=== PATIENT | female | born 1950 | race Caucasian/White ===

== ENCOUNTER 2025-07-15 12:24 | Emergency (ER) | payer MEDICARE, SELFPAY ==
--- NOTE | ~2025-07-15 | XR_ITS ---
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 Findings: No acute fracture or malalignment. No significant degenerative changes. Soft tissues unremarkable. Impression: No acute fracture or malalignment. Reviewed, dictated and finalized at location P. HOUSE PRODUCTION WORKER Impression: No acute fracture or malalignment.
--- OUTSIDE RECORDS SUMMARY | 2025-07-15 12:34 | XMS_ITS | Clinical Summary ---
Author Organization [facility] Address [address] [facility] [address] [place] [address] Phone Care Team Providers Care Shearing Shed Worker Name Role Phone Mina Link MD Primary Care Provider [phone] Asiya Priteo MD Unavailable [phone] Viktor Key MD Unavailable [phone] Allergies Active Allergy Reactions Criticality Noted Date Comments Tuberculin Ppd Unknown 10/02/2016 Medications fish oil-omega-3 fatty acids 1000 MG Capsule Take by mouth. Active Calcium Carb-Cholecalci ferol (CALCIUM + D3) 600-200 MG-UNIT Tablet Take 2 Tablets by mouth daily. Active magnesium oxide (MAG-OX) 400 MG Tablet Take 400 mg by mouth daily. Active Cholecalciferol (VITAMIN D PO) Take by mouth. Active meclizine (ANTIVERT) 25 MG Tablet Take 1 Tablet by mouth 3 times daily as needed for Dizziness. 30 Tablet 5 Active ondansetron (ZOFRAN) 4 MG Tablet Take 1-2 Tablets by mouth every 8 hours as needed for Nausea - 1st line. 20 Tablet 5 Active ondansetron (ZOFRAN-ODT) 4 MG TABLET DISPERSIBLE Take 1-2 Tablets by mouth every 8 hours as needed for Nausea - 1st line. 20 Tablet 5 Active alendronate (FOSAMAX) 70 MG Tablet Take 1 Tablet by mouth every 7 days. 12 Tablet 3 5 Active triamcinolone acetonide (Nasacort Allergy 24HR) 55 MCG/ACT AerosolIndicati ons:Chronic maxillary sinusitis 2 Sprays by Nasal route daily. 17 mL 5 5 Active metoprolol Succinate (TOPROL-XL) 25 MG TABLET SR 24 HR Take 1 tablet by mouth once daily 90 Tablet 1 5 Active amLODIPine (NORVASC) 5 MG Tablet Take 1 tablet by mouth once daily 90 Tablet 1 5 Active losartan (COZAAR) 100 MG Tablet Take 1 tablet by mouth once daily 90 Tablet 1 5 Active simvastatin (ZOCOR) 20 MG Tablet Take 1 tablet by mouth nightly 90 Tablet 5 Active simvastatin (ZOCOR) 20 MG Tablet Take 1 tablet by mouth nightly 90 Tablet 1 5 025 Discontinued Active Problems Problem Noted Date Diagnosed Date Subacute maxillary sinusitis 10/07/2024 Nausea 10/07/2024 Rupture of right Achilles tendon 05/26/2024 B12 deficiency 10/19/2023 Hematuria 10/19/2023 Dizziness 05/27/2023 Sinus congestion 05/27/2023 Foul smelling urine 05/27/2023 Abnormal mammogram 10/09/2022 Left sided sciatica 10/09/2022 Abnormal cardiovascular stress test 07/03/2022 Osteopenia 06/02/2022 Postmenopausal 03/19/2022 Right elbow pain 03/19/2022 Chronic joint pain 09/19/2021 HTN (hypertension) 11/10/2020 Skin lesion of back 08/04/2020 COVID-19 08/04/2020 Left hip pain 08/04/2020 Overweight (BMI 25.0-29.9) 06/02/2019 Leukopenia 09/13/2018 Hyperglycemia 09/13/2018 Abnormal mammogram of right breast 08/06/2018 Obesity (BMI 30-39.9) 07/09/2017 Metatarsalgia, right foot 02/27/2017 Instability of metatarsophalangeal joint of righ t foot 02/27/2017 Equinus contracture of right ankle 02/27/2017 Instability of ankle 01/01/2017 Acute right ankle pain 01/01/2017 Sprain of right ankle 01/01/2017 Vitamin D insufficiency 11/12/2016 Hyperlipidemia 10/02/2016 Hypomagnesemia 10/02/2016 Insomnia 10/02/2016 History of colon polyps 10/02/2016 Bilateral impacted cerumen 10/02/2016 Encounters Date Type Department Care Team Description 07/15/2025 Refill [facility] [address] [facility] [place] [address] Mina Link MD Medication Refill 06/07/2025 9:30 AM MERCHANT PATROLLER Office Visit [facility] [address] [place] [address] Zach Fields APRN, CNP Primary hypertension (Primary Dx); Hyperlipidemia, unspecified hyperlipidemia type Discharge Disposition: Discharged to home or Selfcare 06/07/2025 Results Follow-Up [facility] [address] [facility] [address] Zach Fields APRN, CNP CMP (COMPREHENSIVE METABOLIC PANEL), HEMOGLOBIN A1C W/ ESTIMATED GLUCOSE, LIPID PANEL, CBC WITH AUTO DIFFERENTIAL 06/05/2025 Travel 06/05/2025 Refill [facility] [address] [place] [address] Mina Link MD Medication Refill from Last 3 Months Immunizations Immunization Administration Dates Next Due Covid-19, Mrna, Lnp-s, Pf, 3 0 Mcg/0.3 Ml Dose ([employer]) 10/15/2020,09/22/2020 Influenza Vaccine greater than 3 yrs 04/23/2017 Influenza Vaccine, Quadrivalent, PF 05/17/2020,1 08/02/2018,08/25/2018 Influenza, High-dose, Quadrivalent 04/28,04/04/2022,05/29/2021,05/29 Influenza, high-dose, trivalent, PF 05/04/2024,0 04/25/2020 MMR Vaccine 12/10/2005 Pneumococcal Vaccine - 13 Valent 08/04/2020 Pneumococcal conjugate PCV20 , polysaccharide [id number] conjugate, adjuvant, PF 04/04/2022 Family History Medical History Relation Name Comments Congestive Heart Failure Father Sabas Breast Cancer Mother Zeny Cancer Mother Zeny Heart Attack Mother Zeny Heart Disease Mother Zeny Hypertension Mother Zeny Sudden Cardiac Mother Zeny Relation Name Status Comments Father Sabas Mother Zeny Social History Tobacco Use Types Packs/Day Years Used Date Smoking Tobacco: Never Smokeless Tobacco: Never Tobacco Cessation:Counseling Given: Not Answered Alcohol Use Standard Drinks/Week Comments No 0 (1 standard drink = 0.6 oz pur e alcohol) [facility] Utilities Answer Date Recorded In the past 12 months has th e electric, gas, oil, or water company threatened to shut off services in your home? No 11/28/2024 Social Connection and Isolation Panel Answer Date Recorded In a typical week, how many times do you talk on the phone with family, friends, or neighbors? More than three times a week 11/28/2024 How often do you get togethe r with friends or relatives? Twice a week 11/28/2024 How often do you attend [facility] ch or yarsanism services? Never 11/28/2024 Do you belong to any clubs o r organizations such as spiritism groups, unions, fraternal or athletic groups, or school groups? No 11/28/2024 How often do you attend meet ings of the clubs or organizations you belong to? Patient declined 11/28/2024 Are you , , di vorced, , never , or living with a partner? 11/28/2024 AUDIT-C Answer Date Recorded Q1: How often do you have a drink containing alcohol? Never 11/28/2024 Q2: How many drinks containi ng alcohol do you have on a typical day when you are drinking? Patient does not drink Q3: How often do you have si x or more drinks on one occasion? Never 11/28/2024 Overall Financial Resource Strain (CARDIA) Answe r Date Recorded How hard is it for you to pa y for the very basics like food, housing, medical care, and heating? Not hard at all 11/28/2024 PHQ-2 Answer Date Recorded Total Score - Questions 1-9 0 12/2024 [facility] - Occupational Stress Questionnaire Answer Date Recorded Do you feel stress - tense, restless, nervous, or anxious, or unable to sleep at night because your mind is troubled all the time - these days? Not at all 11/28/2024 Exercise Vital Sign Answer Date Recorde d On average, how many days pe r week do you engage in moderate to strenuous exercise (like a brisk walk)? 2 days 11/28/2024 On average, how many minutes do you engage in exercise at this level? 20 min 11/28/2024 Hunger Vital Sign Answer Date Recorded Within the past 12 months, y ou worried that your food would run out before you got the money to buy more. Never true 11/29/19 25 Within the past 12 months, t he food you bought just didn't last and you didn't have money to get more. Never true 11/28/2024 PRAPARE - Transportation Answer Date Re corded In the past 12 months, has l ack of transportation kept you from medical appointments or from getting medications? No 10/2024 In the past 12 months, has l ack of transportation kept you from meetings, work, or from getting things needed for daily living? No 11/28/2024 Housing Stability Vital Sign Answer Kevon e Recorded In the last 12 months, was t here a time when you were not able to pay the mortgage or rent on time? No 08/30/2023 In the last 12 months, how many places have you lived? 1 08/30/2023 In the last 12 months, was t here a time when you did not have a steady place to sleep or slept in a fpc (including now)? No 08/30/2023 Housing Stability Vital Sign Answer Kevon e Recorded In the last 12 months, was t here a time when you were not able to pay the mortgage or rent on time? No 11/28/2024 In the past 12 months, how m any times have you moved where you were living? 0 11/28/2024 At any time in the past 12 m [facility], were you homeless or living in a fpc (including now)? No 11/28/2024 Education Answer Date Recorded What is the highest level of school you have completed or the highest degree you have received? Some college, no degree 09/17/2021 Sexually Active Control Partners Comments Yes Surgical Male Comments No Sex and Gender Information Value Date Recorded Sex Assigned at Female 08/22/2024 8:45 PM MERCHANT PATROLLER Legal Sex Female 7:51 PM CDT Gender Identity Female 08/22/2024 8:45 PM MERCHANT PATROLLER Sexual Orientation Not on file Last Filed Vital Signs Vital Sign Reading Time Taken Comments Blood Pressure 110/78 06/07/2025 8:52 AM MERCHANT PATROLLER Pulse 81 06/07/2025 8:52 AM MERCHANT PATROLLER Temperature 35.5 C (95.9 F) 06/07/2025 8:52 AM MERCHANT PATROLLER Respiratory Rate 12 06/07/2025 8:52 AM MERCHANT PATROLLER Oxygen Saturation 97% 06/07/2025 8:52 AM MERCHANT PATROLLER Inhaled Oxygen Concentration - - Weight 92.3 kg (203 lb 8 oz) 06/07/2025 8:52 AM MERCHANT PATROLLER Height 170.2 cm (5' 7) 06/07/2025 8:52 AM MERCHANT PATROLLER Body Mass Index 31.87 06/07/2025 8:52 AM MERCHANT PATROLLER Plan of Treatment Upcoming Encounters Date Type Department Care Team (Late st Contact Info) Description 08/18/2025 3:00 PM MERCHANT PATROLLER Office Visit [facility] - Cardiology - [place] [address] [place] [phone] Aide Sarmiento MULTIMEDIA DESIGNER, SUPERVISOR PAINTING DEPARTMENT 2 [facility] [address] [place] [address] 12/06/2025 9:00 AM CDT Office Visit [facility] - Family Medicine - [place] [address] [place] [phone] Zach Fields, MULTIMEDIA DESIGNER, SUPERVISOR PAINTING DEPARTMENT [address]2 [facility] [address] [place] [address] 02/16/2026 10:00 AM CDT Office Visit [facility] - Ear, Nose & Throat - [place] [address] [place] [address] Viktor Key MD #2 [facility] [address] [place] [address] 02/17/2026 9:00 AM CDT Office Visit [facility] [address] [place] [address] Asiya Prieto MD [address] [facility] [address] [place] [address] Health Maintenance Due Date Last Done Comments TdaP Immunization 1950 Cologuard 02/09/1997 Immunochemical Fecal Occult Blood 02/09/1997 Zoster Immunization (1 of 2) 02/09/2002 Medicare Initial AWV [id number] 01/25/2018 Mammogram 10/25/2025 10/25/2024, 09/26, 09/20/2022, Additional history exists SARS-COV-2 Immunization ( season) 2025 04/28/2025, 05/04/2024, 05/26/2022, Additional history exists DEXA Bone Density 09/30/2026 09/30/2024, 03/26/2022 Colonoscopy 12/05/2026 12/05/2021, 05/28, 06/06/2014 Colorectal Cancer Screening 12/05/2026 Respiratory Syncytial Virus (RSV) Immunization (Adult) (1 - 1-dose 75+ series) 02/09/2027 Hepatitis C Virus (HCV) Screening Completed 08/27/2018 Pneumococcal Immunization (50+ years) Completed 04/04/2022, 08/04/2020 Pneumococcal Immunization Combined Discontinued 04/04/2022, 08/04/2020 Influenza Immunization Completed , 05/04/2024, 04/28/2023, Additional history exists Hepatitis B Immunization Aged Out No longer eligible based on patient's age to complete this topic Human Papillomavirus (HPV) Immunization (No Doses Required) Completed Meningococcal Immunization (ACWY) Aged Out No longer eligible based on patient's age to complete this topic Rotavirus Immunization Aged Out No lo nger eligible based on patient's age to complete this topic Medical Devices Implanted Type Area Help Desk Associate Device Identifier Shelf Expiration Date Model / Serial / Lot Shawn 3.5mm X 15.5mm Citrefix Xpress System Implanted:Qty: 1 on 05/26/2024 by Enzo Norton, DPM at [facility] IMPLANT Right: Heel SHAWN 01/21/2027-810-351 5 / [id number] Description:IMPLANTED INTO T PROXIMAL HEEL EO LOT: [id number] Hsawn 3.5mm X 15.5mm Citrefix Xpress System Implanted:Qty: 1 on 05/26/2024 by Enzo Norton, DPM at [facility] IMPLANT Right: Heel SHAWN 12/17/2026-810- 5 / [id number] Description:IMPLANTED INTO T PROXIMAL HEEL EO LOT: [id number] Tissue Surgical Stravix Pl 3cm X 6 Cm - [id number] Implanted:Qty: 1 on 05/26/2024 by Enzo Norton, DPM at [facility] IMPLANT Right: Heel [employer] 10/12/2025 [id number] / [id number] / [id number] [place] 4.75mm Peek Knotless New Market System Implanted:Qty: 2 on 05/26/2024 by Enzo Norton, DPM at [facility] Right: Heel SHAWN 08/20/2025 [id number] / [id number] Description:IMPLANTED INTO T DISTAL HEEL Procedures Procedure Name Priority Date/Time Associated Diagnosis Comments CBC WITH AUTO DIFFERENTIAL Routine 06/07/2025 8:48 AM MERCHANT PATROLLER Primary hypertension LIPID PANEL Routine 06/07/2025 8:48 AM MERCHANT PATROLLER Hyperlipidemia, unspecified hyperlipidemia type HEMOGLOBIN A1C W/ ESTIMATED GLUCOSE Routine 06/07/2025 8:48 AM MERCHANT PATROLLER Prediabetes COMPLETE BLOOD COUNT (CBC) WITH DIFF Routine 06/07/2025 8:48 AM MERCHANT PATROLLER Primary hypertension CMP (COMPREHENSIVE METABOLIC PANEL) Routine 06/07/2025 8:48 AM MERCHANT PATROLLER Primary hypertension [facility] DIAG BILATERAL DIGITAL W CAD W CAMRYN Routine 10/25/2024 9:39 AM CDT Abnormal mammogram [facility] BONE DENSITOMETRY AXIAL SKELETON Routine 09/30/2024 9:20 AM MERCHANT PATROLLER Postmenopausal HM COLONOSCOPY 12/05/2021 12:00 AM CDT HEPATITIS C ANTIBODY Routine 08/27/2018 8:00 AM MERCHANT PATROLLER Encounter for hepatitis C screening test for low risk patient from Last 3 Months or Most Recently Relevant to Health Maintenance Results * HEMOGLOBIN A1C W/ ESTIMATED GLUCOSE (06/07/2025 8:48 AM MERCHANT PATROLLER) HGB-A1C 5.6 4.0 - 6.0 % 06/07/2025 9:35 AM MERCHANT PATROLLER [facility] Est Average Glucose 114.0 mg/dL 06/07/2025 9:35 AM MERCHANT PATROLLER [facility] Blood Venipuncture / Unknown 06/07/2025 8:48 AM MERCHANT PATROLLER 06/07/2025 8:59 AM MERCHANT PATROLLER Narrative [facility] - 06/07/2025 9:35 AM MERCHANT PATROLLER HEMOGLOBIN A1C: DIABETIC PATIENTS: WELL-CONTROLLED: 6.2 - 7.0 INTERMEDIATE WELL-CONTROLLED: 7.0 - 9.0 POORLY-CONTROLLED: >9.0 Specimens containing greater than 5% of Hemoglobin F may result in lower than expected % HbA1C results. us Zach Fields APRN, SUPERVISOR PAINTING DEPARTMENT CHEMISTRY ORDERA BLES Final Result [facility] [address] [place] [address] * (ABNORMAL) CBC WITH AUTO DIFFERENTIAL (06/07/2025 8:48 AM [facility] [[email or web address] WBC 4.39 4.00 - 12.00 10(3)/mcL 06/07/2025 9:01 AM [facility] RBC 4.97 3.80 - 5.30 10(6)/mcL 06/07/2025 9:01 AM [facility] HEMOGLOBIN (HGB) 14.0 12.0 - 15.8 g/dL 06/07/2025 9:01 AM [facility] HEMATOCRIT (HCT) 43.2 36.0 - 47.0 % 06/07/2025 9:01 AM [facility] MCV 86.9 82.0 - 96.0 fL 06/07/2025 9:01 AM [facility] MCH 28.2 26.0 - 34.0 pg 06/07/2025 9:01 AM [facility] MCHC 32.4 31.0 - 36.0 g/dL 06/07/2025 9:01 AM [facility] PLATELET COUNT 230 140 - 440 10(3)/[facility] 06/07/2025 9:01 AM [facility] RDW 13.5 11.8 - 15.5 % 06/07/2025 9:01 AM [facility] MPV 9.3(L) 9.7 - 12.4 fL 06/07/2025 9:01 AM [facility] NEUTROPHILS 57.8 47.0 - 73.0 % 06/07/2025 9:01 AM [facility] LYMPHOCYTES 32.6 18.0 - 42.0 % 06/07/2025 9:01 AM [facility] MONOCYTES 7.3 4.0 - 12.0 % 06/07/2025 9:01 AM [facility] EOSINOPHILS 0.9 0.0 - 5.0 % 06/07/2025 9:01 AM [facility] BASOPHILS 0.9 0.0 - 1.0 % 06/07/2025 9:01 AM MERCHANT PATROLLER [facility] IMMATURE GRANULOCYTE 0.5(H) 0.0 - 0.4 % 06/07/2025 9:01 AM MERCHANT PATROLLER [facility] Comment:Immature Granulocyte s includes Metamyelocytes, Myelocytes, and Promyelocytes. ABSOLUTE NEUTROPHILS 2.54 1.60 - 7.70 10(3)/[facility] 06/07/2025 9:01 AM MERCHANT PATROLLER [facility] ABSOLUTE LYMPHOCYTES 1.43 1.30 - 3.20 10(3)/[facility] 06/07/2025 9:01 AM MERCHANT PATROLLER [facility] ABSOLUTE MONOCYTES 0.32 0.20 - 1.00 10(3)/[facility] 06/07/2025 9:01 AM [facility] ABSOLUTE EOSINOPHIL 0.04 0.00 - 0.40 10(3)/[facility] 06/07/2025 9:01 AM [facility] ABSOLUTE BASOPHILS 0.04 0.00 - 0.10 10(3)/[facility] 06/07/2025 9:01 AM [facility] ABSOLUTE IMMATURE GRANULOCYTE 0.02 0.00 - 0.03 10 (3) mcL. 06/07/2025 9:01 AM [facility] NRBC PER 100 WBC 0 06/07/20 25 9:01 AM [facility] Blood Venipuncture / Unknown 06/07/2025 8:48 AM MERCHANT PATROLLER 06/07/2025 8:59 AM MERCHANT PATROLLER us Zach Fields MULTIMEDIA DESIGNER, SUPERVISOR PAINTING DEPARTMENT HEMATOLOGY ORDER DELIA Final Result [facility] [address] [place] [address] * LIPID PANEL (06/07/2025 8:48 AM MERCHANT PATROLLER) CHOLESTEROL 164 <200 mg/dL 06/07/2025 9:56 AM MERCHANT PATROLLER [facility] TRIGLYCERIDES 89 <150 mg/dL 06/07/2025 9:56 AM MERCHANT PATROLLER [facility] HDL CHOLESTEROL 56 >40 mg/dL 9:56 AM [facility] LDL 90 <130 mg/dL 06/07/2025 9:56 AM [facility] VLDL 18 10 - 50 mg/dL 06/07/2025 9:56 AM [facility] CHOL/HDL RATIO 2.9 0.0 - 4.4 06/07/2025 9:56 AM [facility] NON-HDL CHOLESTEROL 108 <130 mg/dL 06/07/2025 9:56 AM [facility] IS THE PATIENT REQUIRED TO BE FASTING? No 06/07/2025 9:56 AM [facility] Blood Venipuncture / Unknown 06/07/2025 8:48 AM MERCHANT PATROLLER 06/07/2025 8:59 AM MERCHANT PATROLLER Narrative [facility] - 06/07/2025 9:56 AM [facility] [[email or web address]] NCEP GUIDELINES FOR LIPID INTERPRETATION TOTAL CHOLESTEROL DESIRABLE <200 BORDERLINE 200-239 HIGH >=240 LDL CHOLESTEROL OPTIMAL <100 NEAR OPTIMAL 100-129 BORDERLINE 130-159 HIGH 160-189 VERY HIGH >=190 Calculated using the Friedewald equation. HDL CHOLESTEROL LOW <40 *HIGH >=60 TRIGLYCERIDES NORMAL <150 BORDERLINE 150-199 HIGH 200-499 VERY HIGH >=500 VLDL calculated using Triglycerides/5. *HDL CHOLESTEROL >=60 mg/dL counts as a negative risk factor; its presence removes one risk factor from the total. Based on guidelines from the National Cholesterol Education Program, desirable levels for non HDL cholesterol are 30 mg/dL above target levels for LDL cholesterol. us Zach Fields MULTIMEDIA DESIGNER, SUPERVISOR PAINTING DEPARTMENT CHEMISTRY ORDERA BLES Final Result [facility] [address] [place] [address] * (ABNORMAL) CMP (COMPREHENSIVE METABOLIC PANEL) (06/07/2025 8:48 AM MERCHANT PATROLLER) SODIUM 140 136 - 145 mmol/L 06/07/2025 9:56 AM [facility] POTASSIUM 4.7 3.5 - 5.1 mmol/L 06/07/2025 9:56 AM [facility] CHLORIDE 104 98 - 107 mmol/L 06/07/2025 9:56 AM [facility] CO2, VENOUS 27 22 - 30 mmol/L 06/07/2025 9:56 AM [facility] ANION GAP 13.7 <18.0 mmol/L 06/07/2025 9:56 AM [facility] GLUCOSE 102(H) 70 - 99 mg/dL 06/07/2025 9:56 AM [facility] BUN 18 10 - 20 mg/dL 06/07/2025 9:56 AM [facility] CREATININE, BLOOD 1.03(H) 0.60 - 1.00 mg/dL 06/07/2025 9:56 AM [facility] BUN/CREATININE RATIO 17 12 - 20 ratio 06/07/2025 9:56 AM [facility] TOTAL PROTEIN 6.9 6.0 - 8.0 g/dL 06/07/2025 9:56 AM [facility] ALBUMIN 4.5 3.5 - 5.0 g/dL 06/07/2025 9:56 AM [facility] A/G RATIO 1.9 1.0 - 2.2 06/07/2025 9:56 AM [facility] CALCIUM 10.3 8.7 - 10.5 mg/dL 06/07/2025 9:56 AM [facility] T BILI 0.7 0.2 - 1.2 mg/dL 06/07/2025 9:56 AM [facility] SGOT (AST) 22 <43 U/L 06/07/2025 9:56 AM [facility] SGPT (ALT) 21 <56 U/L 06/07/2025 9:56 AM [facility] ALKALINE PHOSPHATASE 60 40 - 150 U/L 06/07/2025 9:56 AM MERCHANT PATROLLER [facility] IS THE PATIENT REQUIRED TO BE FASTING? No 06/07/2025 9:56 AM MERCHANT PATROLLER [facility] GFR, ESTIMATED 57(L) >=60 06/07/2025 9:56 AM MERCHANT PATROLLER [facility] Comment: Creatinine Clearance is the preferred criteria for selecting drug dose adjustments in renally impaired patients. The GFR is provided as additional pertinent clinical information. GFR is reported in mL/min/1.73 sq m. Calculation based on the 2020 Chronic Kidney Disease Epidemiology Collaboration (CKD-EPI) equation refit without adjustment for race. GFR, EST. >60 >=60 9:56 AM MERCHANT PATROLLER [facility] Comment: Creatinine Clearance is the preferred criteria for selecting drug dose adjustments in renally impaired patients. The GFR is provided as additional pertinent clinical information. GFR is reported in mL/min/1.73 sq m. Calculation based on the 2009 Chronic Kidney Disease Epidemiology Collaboration (CKD-EPI). GFR, EST. NONAFRICAN 53(L) >=60 06/07/2025 9:56 AM MERCHANT PATROLLER [facility] Comment: Creatinine Clearance is the preferred criteria for selecting drug dose adjustments in renally impaired patients. The GFR is provided as additional pertinent clinical information. GFR is reported in mL/min/1.73 sq m. Calculation based on the 2009 Chronic Kidney Disease Epidemiology Collaboration (CKD-EPI). Blood Venipuncture / Unknown 06/07/2025 8:48 AM MERCHANT PATROLLER 06/07/2025 8:59 AM MERCHANT PATROLLER us Zach Fields MULTIMEDIA DESIGNER, SUPERVISOR PAINTING DEPARTMENT CHEMISTRY ORDERA BLES Final Result [facility] [address] [place] [address] * ROBINSON DIAG BILATERAL DIGITAL W CAD W CAMRYN (10/25/2024 9:39 AM CDT) Anatomical Region Laterality Modality breast Bilateral Mammography 10/25/2024 9:27 AM CDT Narrative 10/25/2024 10:38 AM CDT - ROBINSON DIAG BILATERAL DIGITAL W CAD W CAMYRN BILATERAL DIGITAL DIAGNOSTIC MAMMOGRAM 3D/2D WITH CAD WITH MEDIOLATERAL OBLIQUE CRANIOCAUDAL: 10/25/2024 The study was acquired using digital technology and interpreted from soft copy. Current study was also evaluated with ICAD version 7.2. 2D digital mammographic views, as well as 3D digital tomosynthesis were performed in the CC and MLO projections. CLINICAL: Patient returns for a 2 year follow-up left breast. Patient has no complaints. No personal history of cancer. Mother with postmenopausal breast cancer. COMPARISONS: Comparison is made to exams dated: 10/24/2023, 04/08/2023, 10/22/2022, 09/20/2022, 08/25/2021, and 08/22/2020 [facility]. BREAST TISSUE:There are scattered areas of fibroglandular density. FINDINGS: Left breast focal asymmetry is less impressive or unchanged and is benign. No significant masses, calcifications, or other findings are seen in either breast. There has been no significant interval change. IMPRESSION: BENIGN There is no mammographic evidence of malignancy. A 1 year screening mammogram is recommended. The results and recommendations were discussed with the patient. Electronically signed by: Angelita barbosa/gaye:10/25/2024 09:39:08 Chromosomal Disorders Counselor(s): RT Fe(R)(M), [facility] letter sent: Normal Exam Reading location: [place] Mammogram BI-RADS: Category 2: Benign Procedure Note Angelita Gale MD - 10/25/2024 - [facility] DIAG BILATERAL DIGITAL W CAD W CAMRYN BILATERAL DIGITAL DIAGNOSTIC MAMMOGRAM 3D/2D WITH CAD WITH MEDIOLATERAL OBLIQUE CRANIOCAUDAL: 10/25/2024 The study was acquired using digital technology and interpreted from soft copy. Current study was also evaluated with ICAD version 7.2. 2D digital mammographic views, as well as 3D digital tomosynthesis were performed in the CC and MLO projections. CLINICAL: Patient returns for a 2 year follow-up left breast. Patient has no complaints. No personal history of cancer. Mother with postmenopausal breast cancer. COMPARISONS: Comparison is made to exams dated: 10/24/2023, 04/08/2023, 10/22/2022, 09/20/2022, 08/25/2021, and 08/22/2020 [facility]. BREAST TISSUE:There are scattered areas of fibroglandular density. FINDINGS: Left breast focal asymmetry is less impressive or unchanged and is benign. No significant masses, calcifications, or other findings are seen in either breast. There has been no significant interval change. IMPRESSION: BENIGN There is no mammographic evidence of malignancy. A 1 year screening mammogram is recommended. The results and recommendations were discussed with the patient. Electronically signed by: Angelita Gale M.D. ab/penrad:10/25/2024 09:39:08 Chromosomal Disorders Counselor(s): RT Fe(R)(M), [facility] letter sent: Normal Exam Reading location: [facility] Mammogram BI-RADS: Category 2: Benign [facility] Clark Link MD IMG MAMMO ORDERABLES Phylicia l Result * [facility]SON BONE DENSITOMETRY AXIAL SKELETON (09/30/2024 9:20 AM MERCHANT PATROLLER) Anatomical Region Laterality Modality BODY N/A Computed Radiogr aphy 09/30/2024 3:44 PM MERCHANT PATROLLER Impressions 09/30/2024 3:46 PM MERCHANT PATROLLER IMPRESSION: Low Bone Mass. REFERENCE: Bone mineral density: T-Score: Normal (T-score above or = -1.0) Low bone mass (T-score between -1.0 and -2.5) replaces the previously used term osteopenia Osteoporosis (T-score = or below -2.5) Z-Score: Within the expected range for age (Z-score above -2.0) Below the expected range for age (Z-score is -2.0 or below) Please see below follow up recommendations. Medical evaluation for secondary causes of low bone mineral density may be appropriate. FRAX is a World Health Organization validated fracture risk assessment tool that calculates a person's 10 year probability of a major osteoporosis related fracture and hip fracture. According to the National Osteoporosis Foundation guidelines, postmenopausal women and men age 50 or older with low bone mass and a 10 year probability of a major osteoporosis related fracture = or greater than 20% or a 10 year probability of a hip fracture = or greater than 3% should be considered for pharmacological treatment for the prevention of osteoporosis. 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 CLINICAL INFORMATION: Current height: 67 inches Maximum height: 67 inches Weight: 200 pounds Risk factors: Postmenopausal, adult fracture COMPARISON: 03/26/2022 FINDINGS: AP LUMBAR SPINE L1-L4: Total BMD is 1.301 g/cm2 T-score is 0.9 This is increased in comparison to prior exam which is statistically significant. LEFT HIP: Total BMD is 0.944 g/cm2 T-score is -0.5 This is increased in comparison to prior exam which is statistically significant. Femoral neck BMD is 0.824 g/cm2 T-score is -1.5 FRAX: 10 year risk for a major osteoporotic fracture is 15.8 %, 10 year risk for a hip fracture is 2.5 % THIS IS AN ELECTRONICALLY VERIFIED FINAL REPORT 09/30/2024 3:44 PM - Electronically signed by Enzo Ashton M.D. 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 CLINICAL INFORMATION: Current height: 67 inches Maximum height: 67 inches Weight: 200 pounds Risk factors: Postmenopausal, adult fracture COMPARISON: 03/26/2022 FINDINGS: AP LUMBAR SPINE L1-L4: Total BMD is 1.301 g/cm2 T-score is 0.9 This is increased in comparison to prior exam which is statistically significant. LEFT HIP: Total BMD is 0.944 g/cm2 T-score is -0.5 This is increased in comparison to prior exam which is statistically significant. Femoral neck BMD is 0.824 g/cm2 T-score is -1.5 FRAX: 10 year risk for a major osteoporotic fracture is 15.8 %, 10 year risk for a hip fracture is 2.5 % THIS IS AN ELECTRONICALLY VERIFIED FINAL REPORT 09/30/2024 3:44 PM - Electronically signed by Enzo Ashton M.D. MF: KEITH Report ID: [id number] Reading Location: [place] [address] IMPRESSION: Low Bone Mass. REFERENCE: Bone mineral density: T-Score: Normal (T-score above or = -1.0) Low bone mass (T-score between -1.0 and -2.5) replaces the previously used term osteopenia Osteoporosis (T-score = or below -2.5) Z-Score: Within the expected range for age (Z-score above -2.0) Below the expected range for age (Z-score is -2.0 or below) Please see below follow up recommendations. Medical evaluation for secondary causes of low bone mineral density may be appropriate. FRAX is a World Health Organization validated fracture risk assessment tool that calculates a person's 10 year probability of a major osteoporosis related fracture and hip fracture. According to the National Osteoporosis Foundation guidelines, postmenopausal women and men age 50 or older with low bone mass and a 10 year probability of a major osteoporosis related fracture = or greater than 20% or a 10 year probability of a hip fracture = or greater than 3% should be considered for pharmacological treatment for the prevention of osteoporosis. For further information, including treatment recommendations, please refer to the 2019 ISCD Official Positions (http://www.iscd.org) and the NOF's Clinician's Guide to Prevention and Treatment of Osteoporosis (http://www.nof.org/professionals/clinical-guidelines) us Mina Link MD IMG DEXA ORDERABLES Final Result * COLONOSCOPY (12/05/2021 12:00 AM CDT) 12/05/2021 us Not On File Provider PROCEDURE/MINOR SURGICAL OR DERABLES Final Result Performing Organization Address City/[facility] Co de Phone Number SCAN * HEPATITIS C ANTIBODY (08/27/2018 8:00 AM MERCHANT PATROLLER) hepatitis C antibody 0.15 <1 S/CO 08/27/2018 2:25 PM MERCHANT PATROLLER [facility] Comment: Signal/Cutoff ratio < 0.79 is Nondetected Signal/Cutoff ratio 0.80-0.99 is Grayzone Signal/Cutoff ratio > 0.99 is Detected Supplemental assays are recommended if signal/cutoff ratio is >/=1.00. Signal/cutoff ratio result >/= 5.00 is 97% predictive of positivity for recombinant immunoblot assay (RIBA) and will be reported to the [place] Department of Public Health as required. Blood specimen (specimen) Venipuncture / Unknown 08/27/2018 8:00 AM MERCHANT PATROLLER 08/27/2018 8:50 AM MERCHANT PATROLLER us Mina Link MD CHEMISTRY ORDERABLES Phylicia l Result Performing Organization Address [facility] Co de Phone Number [facility] [address] [place] [address], from Last 3 Months or Most Recently Relevant to Health Maintenance Insurance MEDICARE [facility] [facility] SUPPLEMENTAL GENERIC GENERIC [facility] GENER[facility] Care Teams Shearing Shed Worker Relationship Specialty Start Date End Date Mina Link MD [address] [facility] [address] [place] [address] PCP - General Family Medicine 10/02/16 Asiya Prieto MD [address] [facility] [address] [place] [address] Consulting Physician Urology 12/05/23 Viktor Key MD [address] [facility] [address] [place] [address] Consulting Physician Otolaryngology 12/13/24
--- OUTSIDE RECORDS SUMMARY | 2025-07-15 12:34 | XMS_ITS | Encounter Summary ---
Author Organization [facility] Address [address] [place] [address] Phone Care Team Providers Care Processing Specialist Name Role Phone Mina Link MD Primary Care Provider [phone] Ahmet Ortega DPM Unavailable [phone] Mitch Ramires MD Unavailable Rylie Issa APRN, REFINERY OPERATOR HELPER CRACKING UNIT Unavailable + [phone] Asiya Prieto MD Unavailable [phone] Viktor Key MD Unavailable [phone] Reason for Visit * Reason Comments Medication Refill Encounter Details Date Type Department Care Team (Late st Contact Info) Description 11/11/2023 Refill [facility] - Family Medicine - [address] [place] [address] Mina Link MD [address] [address] Medication Refill Social History Tobacco Use Types Packs/Day Years Used Date Smoking Tobacco: Never Smokeless Tobacco: Never Alcohol Use Standard Drinks/Week Comments No 0 (1 standard drink = 0.6 oz pur e alcohol) [facility] Utilities Answer Date Recorded In the past 12 months has e electric, gas, oil, or water company threatened to shut off services in your home? No 08/30/2023 Social Connection and Isolation Panel Answer Date Recorded In a typical week, how many times do you talk on the phone with family, friends, or neighbors? More than three times a week 08/30/2023 How often do you get togethe r with friends or relatives? Three times a week 08/30/2023 How often do you attend chur or mu-ism services? Patient declined 08/30/2023 Do you belong to any clubs o r organizations such as anglican groups, unions, fraternal or athletic groups, or school groups? No 08/30/2023 How often do you attend meet ings of the clubs or organizations you belong to? Never 08/30/2023 Are you , , di vorced, , never , or living with a partner? 08/30/2023 AUDIT-C Answer Date Recorded Q1: How often do you have a drink containing alc ohol? Monthly or less 08/30/2023 Q2: How many drinks containi ng alcohol do you have on a typical day when you are drinking? 1 or 2 08/30/2023 Q3: How often do you have si x or more drinks on one occasion? Never 08/30/2023 Overall Financial Resource Strain (CARDIA) Answe r Date Recorded How hard is it for you to pa y for the very basics like food, housing, medical care, and heating? Not hard at all 08/30/2023 PHQ-2 Answer Date Recorded Total Score - Questions 1-9 0 08/29 [facility] [place] [facility] - Occupational Stress Questionnaire Answer Date Recorded Do you feel stress - tense, restless, nervous, or anxious, or unable to sleep at night because your mind is troubled all the time - these days? Not at all 08/30/2023 Exercise Vital Sign Answer Date Recorde d On average, how many days pe r week do you engage in moderate to strenuous exercise (like a brisk walk)? 5 days On average, how many minutes do you engage in exercise at this level? Patient declined 08/30/2023 Hunger Vital Sign Answer Date Recorded Within the past 12 months, y ou worried that your food would run out before you got the money to buy more. Never true 08/30/19 24 Within the past 12 months, t he food you bought just didn't last and you didn't have money to get more. Never true 08/30/2023 PRAPARE - Transportation Answer Date Re corded In the past 12 months, has l ack of transportation kept you from medical appointments or from getting medications? No 09/2023 In the past 12 months, has l ack of transportation kept you from meetings, work, or from getting things needed for daily living? No 08/30/2023 Housing Stability Vital Sign Answer [...] place to sleep or slept in a jail (including now)? No 08/30/2023 Education Answer Date Recorded What is the highest level of school you have completed or the highest degree you have received? 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 Requested Prescriptions Pending Prescriptions Disp Refills amLODIPine (NORVASC) 5 MG Tablet [Pharmacy Med Name: amLODIPine Besylate 5 MG Oral Tablet] 90 Tablet 1 Sig: Take 1 tablet by mouth once daily Calcium-Channel Blockers Protocol Passed - 11/11/2023 10:44 AM Passed - BP on record in the past year Clinician-entered: BP Readings from Last 3 Encounters: 09/01/23 148/72 08/14/23 120/76 05/27/23 120/68 Patient-entered: No data recorded Passed - Visit with relevant provider in past 12 months or upcoming 90 days Recent Visits Date Type Provider Dept 09/01/23 Office Visit Mina Link MD [facility] 05/27/23 Office Visit Mina Link MD [facility] 02/11/23 Office Visit Mina Link MD [facility] Showing recent visits within past 365 days and meeting all other requirements Future Appointments Date Type Provider Dept 12/09/23 Appointment Mina Link MD [facility] Showing future appointments within next 90 days and meeting all other requirements documented in this encounter Plan of Treatment Upcoming Encounters Date Type Department Care Team (Late st Contact Info) Description 08/18/2025 3:00 PM WASHING MACHINE REPAIRER Office Visit [facility] - Cardiology - [address] [place] [phone] Aide Sarmiento POWER SYSTEM OPERATOR, REFINERY OPERATOR HELPER CRACKING UNIT 2 [facility] [address] [place] [address] 12/06/2025 9:00 AM CDT Office Visit [facility] Medical [facility] - Family Medicine - [address] [place] [address] Zach Fields, POWER SYSTEM OPERATOR, REFINERY OPERATOR HEL[facility]ING UNIT #2 [facility] [address] [place] [address] 02/16/2026 10:00 AM CDT Office Visit [facility] Medical [facility] - Ear, Nose & Throat - [address] [place] [address] Viktor Key MD #2 [facility] [address] [place] [address] 02/17/2026 9:00 AM CDT Office Visit [facility] [address] [place] [id number] Asiya Prieto MD [address], [facility] [address] [place] [address] documented as of this encounter Visit Diagnoses Not on filedocumented in this encounter Additional Health Concerns Infection Onset Date Last Indicated Resolved Time COVID - 19 09/30/2024 09/30/2024 09/30/2024 1:57 PM WASHING MACHINE REPAIRER Assessment Noted Time PHQ-9 Depression Total Score: 0 08/04/19 8:00 AM WASHING MACHINE REPAIRER documented as of this encounter Care Teams Processing Specialist Relationship Specialty Start Date End Date Mina Link MD [address] [facility] [address] [place] [address] PCP - General Family Medicine 10/02/16 Ahmet Ortega DPM #[address] [facility] [address] [place] [address] Consulting Physician Podiatry 12/02/16 06/30/24 Mitch Ramires MD [address] [facility] [address] [place] [address] Consulting Physician Cardiovascular Disease - Cardiology 07/26/22 06/30/24 Rylie Soler APRN, REFINERY OPERATOR [facility] [address] [place] [address] Nurse Practitioner Cardiology 08/06/23 02/20/25 Asiya Prieto MD #[address], [facility] [address] [place] [address] Consulting Physician Urology 12/05/23 Viktor Key MD #2 [facility] [address] [address] Consulting Physician Otolaryngology 12/13/24 documented as of this encounter
--- OUTSIDE RECORDS SUMMARY | 2025-07-15 12:34 | XMS_ITS | Clinical Summary ---
Author Organization [facility] Address [facility] [facility] [place] [address] Care Team Providers Care Housekeeping Aide Name Role Phone Unavailable Primary Care Provider Unavailabl e Source Comments [facility],non-owned Affiliates and Associated Physician Practices is amultiple site organization consisting of ambulatory clinics and hospital sitesin [place], [place], [place] and [place]. This disclosure is being madepursuant to the Care Everywhere program and may not contain all information available regarding this patient. Last updated 18.[facility] Allergies Active Allergy Reactions Criticality Noted Date Comments Tuberculin Ppd 10/02/2016 Other reaction(s): Unknown Medications * Be aware that medications may not be up to date on this document. Alwaysverify current medications with the patient. Cholecalciferol 5000 UNITS Active magnesium oxide (MAG-OX) 400 MG tablet Take 400 mg by mouth Active melatonin 5 MG tablet Take 5 mg by mouth Active simvastatin (ZOCOR) 20 MG tablet Take 20 mg by mouth 10/02/2016 Active Calcium Carb-Cholecalcif yesika (CALCIUM + D3) 600-200 MG-UNIT Active [place]-3 Fatty Acids (FISH OIL) 1000 MG capsule Acti ve Active Problems No known active problems Family History Medical History Relation Name Comments Hypertension Brother 2 Heart Failure Brother 3 congestive Arthritis Father Heart Failure Father Heart Failure Maternal Grandfather Parkinson's Disease Maternal Grandmother Breast Cancer after age 50 or unknown Mother Hypertension Mother MS Mother Heart Failure Sister 2 congestive Heart defect Sister 3 Hypercholesterolemia Sister 4 Relation Name Status Comments Brother 1 Brother 2 Brother 3 Father Maternal Grandfather Maternal Grandmother Mother Sister 1 Alive x2 Sister 2 Sister 3 Sister 4 Social History Tobacco Use Types Packs/Day Years Used Date Smoking Tobacco: Never Smokeless Tobacco: Never Alcohol Use Standard Drinks/Week Comments Yes 0 (1 standard drink = 0.6 oz pur e alcohol) occ- holidays 2-3 per year Comments No Sex and Gender Information Value Date Recorded Sex Assigned at Not on file Legal Sex Female 11:52 AM HELMET BINDER Gender Identity Not on file Sexual Orientation Not on file Last Filed Vital Signs Vital Sign Reading Time Taken Comments Blood Pressure 122/88 11/12/2017 7:52 AM CDT Pulse 77 11/12/2017 7:52 AM CDT Temperature 37.2 C (98.9 F) 11/12/2017 7:52 AM CDT Respiratory Rate 18 07/22/2014 11:52 AM HELMET BINDER Oxygen Saturation 94% 06/14/2017 12:21 PM HELMET BINDER Inhaled Oxygen Concentration - - Weight 88.5 kg (195 lb) 11/12/2017 7:52 AM CDT Height 170.2 cm (5' 7) 11/12/2017 7:52 AM CDT Body Mass Index 30.54 11/12/2017 7:52 AM CDT Plan of Treatment Health Maintenance Due Date Last Done Comments BONE DENSITY TESTING 1950 COLOGUARD (AGES 45-75) - COLON CA SCREENING 1950 CT COLONOGRAPHY - COLON CA SCREENING 1950 FIT - COLON CA SCREENING 1950 FLEX SIG - COLON CA SCREENING 1950 MAMMOGRAM 1950 MEDICARE AWV 12 MONTHS 1950 HEPATITIS C SCREENING 02/05/1970 DTAP/TDAP/TD VACCINES (1 - Tdap) 02/09/1971 PNEUMOCOCCAL VACCINE 50+ (1 of 1 - PCV) 02/09/2002 ZOSTER VACCINE (1 of 2) 02/09/2002 SCREENING FOR DIABETES 07/19/2017 07/19/2014, 2013 COLON MONITORING 06/06/2024 06/06/2014, 04/2014, 06/06/2014, Additional history exists COLONOSCOPY - COLON CA SCREENING 06/06/2024 06/06/2014, 06/06/2014, 06/06/2014, Additional history exists Colorectal Cancer Screening 06/06/2024 DEPRESSION SCREENING 07/28/2024 COVID-19 VACCINE ( - season) 2025 INFLUENZA VACCINE (#1) 2025 04/23/2017 Respiratory Syncytial Virus (RSV) Vaccine Pt: or over 60 yrs (1 - 1-dose 75+ series) 02/09/2027 HEPATITIS B VACCINE Aged Out No longe r eligible based on patient's age to complete this topic HIB VACCINE Aged Out No longer eligi ble based on patient's age to complete this topic HPV VACCINE Aged Out No longer eligi ble based on patient's age to complete this topic MENINGOCOCCAL (Group B) VACCINE SHARED DECISION-MAKING Aged Out No longer eligible based on patient's age to complete this topic MENINGOCOCCAL GROUPS A/C/Y/W VACCINE Aged Out No longer eligible based on patient's age to complete this topic Procedures Procedure Name Priority Date/Time Associated Diagnosis Comments COMPREHENSIVE METABOLIC PANEL Routine 07/19/2014 3:11 AM HELMET BINDER ENDOSCOPY, COLON, SCREENING Routine 06/06/2014 from Last 3 Months or Most Recently Relevant to Health Maintenance Results * (ABNORMAL) COMPREHENSIVE METABOLIC PANEL (07/19/2014 3:11 AM HELMET BINDER) Glucose 128(H) 74 - 106 mg/dL 07/19/2014 6:04 AM [facility] Sodium 136 136 - 145 mmol/L 07/19/2014 6:04 AM [facility] Potassium 4.3 3.5 - 5.1 mmol/L 07/19/2014 6:04 AM [facility] Chloride 105 98 - 107 mmol/L 07/19/2014 6:04 AM [facility] CO2 24 22 - 31 mmol/L 07/19/2014 6:04 AM [facility] Calcium 8.8 8.5 - 10.1 mg/dL 07/19/2014 6:04 AM [facility] Anion Gap 7 5 - 15 mmol/L 07/19/2014 6:04 AM [facility] BUN 8 7 - 21 mg/dL 07/19/2014 6:04 AM [facility] Creatinine 0.62 0.50 - 1.30 mg/dL 07/19/2014 6:04 AM [facility] eGFR by MDRD >60 >60 mL/min/1.7 3m2 07/19/2014 6:04 AM [facility] eGFR by MDRD >60 >60 mL/min/1.7 3m2 07/19/2014 6:04 AM HELMET BINDER [facility] Alkaline Phosphatase 74 38 - 126 U/L 07/19/2014 6:04 AM HELMET BINDER [facility] ALT 20 12 - 78 U/L 07/19/2014 6:04 AM HELMET BINDER [facility] AST 19 5 - 40 U/L 07/19/2014 6:04 AM HELMET BINDER [facility] Protein Total 5.9(L) 6.4 - 8.2 gm/dL 07/19/2014 6:04 AM HELMET BINDER [facility] Albumin 3.2(L) 3.4 - 5.0 gm/dL 07/19/2014 6:04 AM HELMET BINDER [facility] Bilirubin Total 0.6 0.2 - 1.0 mg/dL 07/19/2014 6:04 AM HELMET BINDER [facility] Blood BLOOD SPECIMEN / Unknown 07/19/2014 3:11 AM HELMET BINDER 07/19/2014 5:29 AM HELMET BINDER Kathy Whyte MD LAB - CHEMISTRY ORDERABLES Fin al Result Performing Organization Address City/State/[facility] Co de Phone Number [facility] [address] [place] [phone] * ENDOSCOPY, COLON, SCREENING (06/06/2014) Kathy Whyte MD GI PROCEDURE ORDERABLES Final Result from Last 3 Months or Most Recently Relevant to Health Maintenance Insurance [place]ICARE [place] MEDICARE [facility] Advance Directives * Full Code (Latest Code Status on File) Date Activated Date Inactivated Comments 07/18/2014 7:39 PM 07/22/2014 1:20 PM
--- OUTSIDE RECORDS SUMMARY | 2025-07-15 12:34 | XMS_ITS | Clinical Summary ---
Author Organization [facility] [address] Address [address] [place] [address] Phone Care Team Providers Care E Commerce Specialist Name Role Phone Mina Link MD Primary Care Provider [phone] Allergies Active Allergy Reactions Criticality Noted Date Comments Tuberculin Ppd Hives Medium 10/02/2016 Medications cholecalciferol (VITAMIN D-3) 2,000 unit tablet Take by mouth daily Active calcium carbonate-vitam in D3 600 mg (1,500 mg)-800 unit tablet,chewable Take 1 tablet by mouth daily Active magnesium oxide (MAG-OX) 400 mg (241.3 mg elemental magnesium) tabletIndicatio ns:hypomagnesem ia Take 400 mg by mouth daily Active omega-3 fatty acids (LOVAZA) 1 gram capsuleIndicati ons:stop 5 days before surgery Take 1 g by mouth daily Active simvastatin (ZOCOR) 20 mg tablet Take 20 mg by mouth nightly Active metoprolol XL (TOPROL-XL) 25 mg extended release tablet Take 25 mg by mouth daily Active amLODIPine (NORVASC) 5 mg tablet Take 5 mg by mouth daily Active losartan (COZAAR) 100 mg tablet Take 1 tablet (100 mg total) by mouth daily 90 tablet 3 2 Active benzonatate (TESSALON) 200 mg capsuleIndicati ons:Bronchitis Take 1 capsule (200 mg total) by mouth 3 (three) times a day as needed for cough 30 capsule 5 Active albuterol HFA (PROVENTIL HFA,VENTOLIN HFA,PROAIR HFA) 90 mcg/actuation inhalerIndicati ons:Bronchitis Inhale 2 puffs every 4 (four) hours as needed for wheezing or shortness of breath 18 g 5 Active inhalational spacing device (Aerochamber MV) spacerIndicatio ns:Bronchitis Use with albuterol inhaler 1 each 5 Active Active Problems Problem Noted Date Diagnosed Date Mixed hyperlipidemia 01/10/2022 Impingement syndrome of left shoulder 08/04/2019 Overview (08/04/2019): Added automatically from request for surgery [id number] Essential hypertension 03/11/2013 Overview (10/30/2016): Hypertension Surgical History Surgery Date Site/Laterality Comments OTHER SURGICAL HISTORY 07/28/2010 - 07/27/2011 Torn right medial meniscus: right knee arthroscopic partial medial meniscectomy OTHER SURGICAL HISTORY Hysterectomy 1996 OTHER SURGICAL HISTORY Tonsils and adenoids 1972 KNEE ARTHROSCOPY Left Meniscal Repair SHOULDER ARTHROSCOPY Right Medical History Medical History Date Comments Hx Other Medical Torn right medi al meniscus Hyperlipidemia Diverticulitis of colon Social History Tobacco Use Types Packs/Day Years Used Date Smoking Tobacco: Never Smokeless Tobacco: Never Tobacco Cessation:Counseling Given: Not Answered Alcohol Use Standard Drinks/Week Comments Yes 0 (1 standard drink = 0.6 oz pur e alcohol) occasionally Comments No Sex and Gender Information Value Date Recorded Sex Assigned at Not on file Legal Sex Female 8:53 AM ASSOCIATE DEAN OF WOMEN Gender Identity Not on file Sexual Orientation Not on file Last Filed Vital Signs Vital Sign Reading Time Taken Comments Blood Pressure 128/66 01/16/2025 9:31 AM CDT Pulse 86 01/16/2025 9:31 AM CDT Temperature 36.8 C (98.2 F) 01/16/2025 9:31 AM CDT Respiratory Rate 19 01/16/2025 9:31 AM CDT Oxygen Saturation 95% 01/16/2025 9:31 AM CDT Inhaled Oxygen Concentration - - Weight 98.1 kg (216 lb 4.8 oz) 01/16/2025 9:31 A M CDT Height 170.2 cm (5' 7) 05/13/2022 9:55 AM CDT Body Mass Index 33.88 05/13/2022 9:55 AM CDT Plan of Treatment Health Maintenance Due Date Last Done Comments Colon Cancer Screening-Colonoscopy 1950 Depression Screening 1952 Fall Risk Assessment 1950 Hepatitis C Screening 1950 DTaP/Tdap/Td Vaccine (1 - Tdap) 02/09/1963 Hepatitis B Screening 02/09/1970 Zoster Vaccine (1 of 2) 02/09/2002 Well Visit 65+ 02/09/2017 Pneumococcal vaccine 65+ (2 of 2 - PCV20 or PCV21) 08/04/2021 08/04/2020, 07/16/2017 Covid-19 Vaccine (3 - 2024-2 6 season) 2025 10/15/2020, 09/22/2020 Influenza Vaccine (#1) 2025 , 05/17/2020, 04/25/2020, Additional history exists Breast Cancer Screening-Mammogram 10/25/2025 10/25/2024, 10/25/2024, 10/24/2023, Additional history exists Osteoporosis Screening-Bone Density Scan 09/30/2026 09/30/2024, 09/30/2024, 03/26/2022, Additional history exists [facility] COMMERCIAL GENERIC MEDICARE AETNA MEDICARE Care Teams E Commerce Specialist Relationship Specialty Start Date End Date Mina Link MD [address] [place] [address] PCP - General Family Medicine 08/04/17
--- OUTSIDE RECORDS SUMMARY | 2025-07-15 12:34 | XMS_ITS | Encounter Summary ---
Author Organization [facility] Address [address] [place] [address] Phone Care Team Providers Care Assigner Name Role Phone Mina Link MD Primary Care Provider [phone] Asiya Prieto MD Unavailable [phone] Viktor Key MD Unavailable [phone] Encounter Details Date Type Department Care Team (Late st Contact Info) Description 06/07/2025 Results Follow-Up [facility] - Family Medicine - [place] [address] [place] [address] Zach Fields APRN, COLLECTIONS ASSISTANT #[address] [address] CMP (COMPREHENSIVE METABOLIC PANEL), HEMOGLOBIN A1C W/ ESTIMATED GLUCOSE, LIPID PANEL, CBC WITH AUTO DIFFERENTIAL Social History Tobacco Use Types Packs/Day Years Used Date Smoking Tobacco: Never Smokeless Tobacco: Never Alcohol Use Standard Drinks/Week Comments No 0 (1 standard drink = 0.6 oz pur e alcohol) [facility] Utilities Answer Date Recorded In the past 12 months has [employer], gas, oil, or water [employer] threatened to shut off services in your home? No 11/28/2024 Social Connection and Isolation Panel Answer Date Recorded In a typical week, how many times do you talk on the phone with family, friends, or neighbors? More than three times a week 11/28/2024 How often do you get togethe r with friends or relatives? Twice a week 11/28/2024 How often do you attend chur ch or shinto services? Never 11/28/2024 Do you belong to any clubs o r organizations such as rastafarian groups, unions, fraternal or athletic groups, or [...] Total Score - Questions 1-9 0 12/2024 [facility] - Occupational Stress Questionnaire Answer Date Recorded [...] place to sleep or slept in a detention (including now)? No 08/30/2023 Housing Stability Vital Sign Answer Kevon e Recorded In the last 12 months, was t here a time when you were not able to pay the mortgage or rent on time? No 11/28/2024 In the past 12 months, how m any times have you moved where you were living? 0 11/28/2024 At any time in the past 12 m [facility], were you homeless or living in a detention (including now)? No 11/28/2024 Education Answer Date Recorded What is the highest level of school you have completed or the highest degree you have received? Some college, no degree 09/17/2021 Sexually Active Control Partners Comments Yes Surgical Male Comments No Sex and Gender Information Value Date Recorded Sex Assigned at Female 08/22/2024 8:45 PM SIGN HANGER Legal Sex Female 7:51 PM CDT Gender Identity Female 08/22/2024 8:45 PM SIGN HANGER Sexual Orientation Not on file documented as of this encounter Functional Status * BP Answer Date of Assessment Author 110/78 06/07/2025 8:52 AM Jadon Baldwin * Temp Answer Date of Assessment Author 95.9 06/07/2025 8:52 AM Jadon Baldwin * Pulse Answer Date of Assessment Author 81 06/07/2025 8:52 AM Jadon Baldwin * Resp Answer Date of Assessment Author 12 06/07/2025 8:52 AM SIGN HANGER Jadon Morrell ril * SpO2 Answer Date of Assessment Author 97 06/07/2025 8:52 AM Jadon Baldwin ril documented as of this encounter Mental Status * BP Answer Entry Date Author 110/78 06/07/2025 8:52 AM Jadon Baldwin ril * Temp Answer Entry Date Author 95.9 06/07/2025 8:52 AM Jadon Baldwin ril * Pulse Answer Entry Date Author 81 06/07/2025 8:52 AM Jadon Baldwin ril * SpO2 Answer Entry Date Author 97 06/07/2025 8:52 AM Jadon Baldwin ril documented in this encounter Plan of Treatment Upcoming Encounters Date Type Department Care Team (Late st Contact Info) Description 08/18/2025 3:00 PM SIGN HANGER Office Visit [facility] - Cardiology - [place] [address] [place] [address] Aide Sarmiento SILK SCREEN FRAME ASSEMBLER, COLLECTIONS ASSISTANT 2 [facility] [address] [place] [address] 12/06/2025 9:00 AM CDT Office Visit [facility] - Family Medicine - [place] [address] [place] [address] Zach Fields, SILK SCREEN FRAME ASSEMBLER, COLLECTIONS ASSISTANT #2 [facility] [address] [place] [address] 02/16/2026 10:00 AM CDT Office Visit [facility] - Ear, Nose & Throat - [place] [address] [place] [address] Viktor Key MD #2 [facility] [address] [place] [address] 02/17/2026 9:00 AM CDT Office Visit [facility] #[address] [place] [address] Asiya Prieto MD [address] [facility] [address] [place] [address] documented as of this encounter Visit Diagnoses Not on filedocumented in this encounter Additional Health Concerns Assessment Noted Time PHQ-9 Depression Total Score: 0 12/01/19 25 9:11 AM CDT documented as of this encounter Care Teams Assigner Relationship Specialty Start Date End Date Mina Link MD #2 [address] [facility] [address] [place] [address] PCP - General Family Medicine 10/02/16 Asiya Prieto MD #2 [facility] [address] [place] [address] Consulting Physician Urology 12/05/23 Viktor Key MD #2 [facility] [facility] [address] [place] [address] Consulting Physician Otolaryngology 12/13/24 documented as of this encounter
--- OUTSIDE RECORDS SUMMARY | 2025-07-15 12:34 | XMS_ITS | Encounter Summary ---
Author Organization [facility] Address [address] [place] [address] Phone Care Team Providers Care Director Of Catering Name Role Phone Mina Link MD Primary Care Provider [phone] Ahmet Ortega DPM Unavailable [phone] Mitch Ramires MD Unavailable Rylie Issa APRN, INSPECTOR FABRIC Unavailable + [phone] Asiya Prieto MD Unavailable [phone] Viktor Key MD Unavailable [phone] Reason for Visit * Reason Comments Medication Refill Encounter Details Date Type Department Care Team (Late st Contact Info) Description 01/09/2024 [facility]ill [facility] - [place] [address] [place] [address] Mina Likn MD [address] [address] Medication Refill Social History Tobacco Use Types Packs/Day Years Used Date Smoking Tobacco: Never Smokeless Tobacco: Never Alcohol Use Standard Drinks/Week Comments No 0 (1 standard drink = 0.6 oz pur e alcohol) [facility] Utilities Answer Date Recorded In the past [...] How often do you attend chur or anglican services? Patient declined 08/30/2023 Do you belong to any clubs o r organizations such as sikhism groups, unions, fraternal or athletic groups, or [...] Total Score - Questions 1-9 0 08/29 [facility] [place] of Occupat ional Health - Occupational Stress [...] place to sleep or slept in a long-term (including now)? No 08/30/2023 Education Answer Date Recorded What is the highest level of school you have completed or the highest degree you have received? Some college, no degree 09/17/2021 Sexually Active Control Partners Comments Yes Surgical Male Comments No Sex and Gender Information Value Date Recorded Sex Assigned at Female 08/22/2024 8:45 PM MULTI MISSION HELICOPTER AIRCREWMAN Legal Sex Female 7:51 PM CDT Gender Identity Female 08/22/2024 8:45 PM MULTI MISSION HELICOPTER AIRCREWMAN Sexual Orientation Not on file documented as of this encounter Miscellaneous Notes * Telephone Encounter - Mulu Cohen RN - 01/09/2024 11:09 AM CDT Medication(s) refilled and signed per [facility] Chronic Medication Refill Standing Order for Pediatricand Adult Patients. Requested Prescriptions Pending Prescriptions Disp Refills losartan (COZAAR) 100 MG Tablet [Pharmacy Med Name: Losartan Potassium 100 MG Oral Tablet] 90 Tablet 1 Sig: Take 1 tablet by mouth once daily ARB Protocol Passed - 01/09/2024 6:53 AM Passed - Serum potassium on record in past 12 months POTASSIUM Date Value Ref Range Status 09/01/2023 4.3 3.5 - 5.1 mmol/L Final Passed - BP on record in the past year Clinician-entered: BP Readings from Last 3 Encounters: 12/09/23 144/90 12/05/23 (!) 167/99 09/01/23 148/72 Patient-entered: No data recorded Passed - Visit with relevant provider in past year or upcoming 90 days Recent Visits Date Type Provider Dept 12/09/23 Office Visit Mina Link MD [facility] 09/01/23 Office Visit Mina Link MD [facility] 05/27/23 Office Visit Mina Link MD [facility] 02/11/23 Office Visit Mina Link MD [facility] Showing recent visits within past 365 days and meeting all other requirements Future Appointments Date Type Provider Dept 04/05/24 Appointment Mina Link MD [facility] Showing future appointments within next 90 days and meeting all other requirements Passed - GFR on record in past 12 months GFR, EST. NONAFRICAN Date Value Ref Range Status 09/01/2023 >60 >=60 Final documented in this encounter Plan of Treatment Upcoming Encounters Date Type Department Care Team (Late st Contact Info) Description 08/18/2025 3:00 PM MULTI MISSION HELICOPTER AIRCREWMAN Office Visit [facility] Medical [facility] - Cardiology - [place] [address] [place] [address] Aide Sarmiento APRN, INSPECTOR FABRIC 2 [facility] [address] [place] [address] 12/06/2025 9:00 AM CDT Office Visit [facility] - Family Medicine - [place] [address] [place] [address] Zach Fields, SILK WINDING MACHINE OPERATOR, INSPECTOR FABRIC #2 [facility] [address] [place] [address] 02/16/2026 10:00 AM CDT [facility] Visit [facility] - [facility] - [place] #2 [facility] [place] [address] Viktor Key MD #2 [facility] [place] [facility] [address] [place] [address] 02/17/2026 9:00 AM CDT Office Visit [facility] [facility] #[address] [place] [address] Asiya Prieto MD #2 [facility] [address] [place] [address] documented as of this encounter Visit Diagnoses Not on filedocumented in this encounter Additional Health Concerns Infection Onset Date Last Indicated Resolved Time COVID - 19 09/30/2024 09/30/2024 09/30/2024 1:57 PM MULTI MISSION HELICOPTER AIRCREWMAN Assessment Noted Time PHQ-9 Depression Total Score: 0 08/04/19 21 8:00 AM MULTI MISSION HELICOPTER AIRCREWMAN documented as of this encounter Care Teams Director Of Catering Relationship Specialty Start Date End Date Mina Link MD #2 [facility] [address] [place] [address] PCP - General Family Medicine 10/02/16 Ahmet Ortega DPM #2 [facility] [address] [place] [address] Consulting Physician Podiatry 12/02/16 06/30/24 Mitch Ramires MD #2 [facility] [address] [place] [address] Consulting Physician Cardiovascular Disease - Cardiology 07/26/22 06/30/24 Rylie Soler APRN, INSPECTOR FABRIC #[address] [facility] [address] [place] [address] Nurse Practitioner Cardiology 08/06/23 02/20/25 Asiya Prieto MD #2 [place] [facility] [address] [place] [address] Consulting Physician Urology 12/05/23 Viktor Key MD #2 [facility] [address] [place] [address] Consulting Physician Otolaryngology 12/13/24 documented as of this encounter
--- OUTSIDE RECORDS SUMMARY | 2025-07-15 12:34 | XMS_ITS | Encounter Summary ---
Author Organization [facility] Address [address] [place] [address] Phone Care Team Providers Care Transcriptionist Name Role Phone Mina Link MD Primary Care Provider [phone] Rylie Soler APRN, RESEARCH TECH Unavailable [phone] Asiya Prieto MD Unavailable [phone] Vitkor Key MD Unavailable [phone] Encounter Details Date Type Department Care Team (Late st Contact Info) Description 02/04/2025 Telephone [facility] [address] [place] [address] Asiya Prieto MD [address] [address] Social History Tobacco Use Types Packs/Day Years Used Date Smoking Tobacco: Never Smokeless Tobacco: Never Alcohol Use Standard Drinks/Week Comments No 0 (1 standard drink = 0.6 oz pur e alcohol) [facility] Utilities Answer Date Recorded In the past 12 months has [employer], gas, oil, or water company threatened [...] often do you attend chur ch or jain services? Never 11/28/2024 Do you belong to any clubs o r organizations such as orthodox groups, unions, fraternal or athletic groups, or [...] Total Score - Questions 1-9 0 12/2024 [facility] - Occupational Stress Questionnaire Answer Date Recorded [...] place to sleep or slept in a penitentiary (including now)? No 08/30/2023 Housing Stability Vital Sign Answer Kevon e Recorded In the last 12 months, was t here a time when you were not able to pay the mortgage or rent on time? No 11/28/2024 In the past 12 months, how m any times have you moved where you were living? 0 11/28/2024 At any time in the past 12 m [facility], were you homeless or living in a penitentiary (including now)? No 11/28/2024 Education Answer Date Recorded What is the highest level of school you have completed or the highest degree you have received? Some college, no degree 09/17/2021 Sexually Active Control Partners Comments Yes Surgical Male Comments No Sex and Gender Information Value Date Recorded Sex Assigned at Female 08/22/2024 8:45 PM REHAB NURSE Legal Sex Female 7:51 PM CDT Gender Identity Female 08/22/2024 8:45 PM REHAB NURSE Sexual Orientation Not on file documented as of this encounter Functional Status * BP Answer Date of Assessment Author 145/87 02/04/2025 9:18 AM CDT Sherley Xie * Pulse Answer Date of Assessment Author 89 02/04/2025 9:18 AM CDT Sherley Xie * Resp Answer Date of Assessment Author 18 02/04/2025 9:18 AM CDT Sherley Xie * SpO2 Answer Date of Assessment Author 95 02/04/2025 9:18 AM CDT Sherley Xie documented as of this encounter Mental Status * BP Answer Entry Date Author 145/87 02/04/2025 9:18 AM CDT Sherley Xie * Pulse Answer Entry Date Author 89 02/04/2025 9:18 AM CDT Sherley Xie * SpO2 Answer Entry Date Author 95 02/04/2025 9:18 AM CDT Sherley Xie documented in this encounter Miscellaneous Notes * Telephone Encounter - Jennifer Perdomo - 02/08/2025 1:27 PM CDT Pt scheduled for appt * Telephone Encounter - Asiya Prieto MD - 02/04/2025 10:04 PM CDT Please let pt know UA still with hematuria- setup f/u with me in 1 year documented in this encounter Plan of Treatment Upcoming Encounters Date Type Department Care Team (Late st Contact Info) Description 08/18/2025 3:00 PM REHAB NURSE Office Visit [facility] - Cardiology - [place] [address] [place] [phone] Aide Sarmiento APRN, RESEARCH TECH 2 [facility] [address] [place] [address] 12/06/2025 9:00 AM CDT Office Visit [facility] - [facility] - [place] #2 [place] [address] Zach Fields APRN, RESEARCH TECH #2 [facility] [address] [place] [address] 02/16/2026 10:00 AM CDT Office Visit [facility] - [facility], [facility]ose & Throat - [place] #2 [facility] [place] [address] Viktor Key MD #2 [facility] [address] [place] [address] 02/17/2026 9:00 AM CDT Office Visit [facility] [address] [place] [address] Asiya Prieto MD #[address] [place] [facility] [address] [place] [address] documented as of this encounter Visit Diagnoses Not on filedocumented in this encounter Additional Health Concerns Assessment Noted Time PHQ-9 Depression Total Score: 0 12/01/19 9:11 AM CDT documented as of this encounter Care Teams Transcriptionist Relationship Specialty Start Date End Date Mina Link MD #[address] [place] [address] [place] [address] PCP - General Family Medicine 10/02/16 Rylie Soler APRN, RESEARCH TECH #2 [facility] [address] [place] [address] Nurse Practitioner Cardiology 08/06/23 02/20/25 Asiya Prieto MD #[address] [facility] [address] [place] [address] Consulting Physician Urology 12/05/23 Viktor Key MD #2 [facility] [address] [place] [address] Consulting Physician Otolaryngology 12/13/24 documented as of this encounter
--- OUTSIDE RECORDS SUMMARY | 2025-07-15 12:34 | XMS_ITS | Encounter Summary ---
Author Organization [facility] Health Address [facility] [address] Care Team Providers Care School Childcare Attendant Name Role Phone Unavailable Primary Care Provider Unavailabl e Encounter Details Date Type Department Care Team (Late st Contact Info) Description 07/01/2014 [facility] Outpatient Visit EXTERNAL NON-[facility] DEPT Kathy Whyte MD [address] [phone] Social History Tobacco Use Types Packs/Day Years Used Date Smoking Tobacco: Never Smokeless Tobacco: Never Alcohol Use Standard Drinks/Week Comments Yes 0 (1 standard drink = 0.6 oz pur e alcohol) occ- holidays 2-3 per year Comments No Sex and Gender Information Value Date Recorded Sex Assigned at Not on file Legal Sex Female 11:52 AM SAP FUNCTIONAL ANALYST Gender Identity Not on file Sexual Orientation Not on file documented as of this encounter Plan of Treatment Not on file documented as of this encounter Visit Diagnoses Not on filedocumented in this encounter
--- OUTSIDE RECORDS SUMMARY | 2025-07-15 12:34 | XMS_ITS | Encounter Summary ---
Author Organization [facility] Address [address] [place] [address] Phone Care Team Providers Care Aviation All Source Intelligence Name Role Phone Mina Link MD Primary Care Provider [phone] Rylie Soler APRN, CODE OFFICIAL Unavailable [phone] Asiya Prieto MD Unavailable [phone] Viktor Key MD Unavailable [phone] Reason for Referral * Radiology Services (Routine) - Closed Specialty Diagnoses / Procedures Referred By Contac t Referred To Contact Radiology Diagnoses Abnormal mammogram Procedures ROBINSON DIAG BILATERAL DIGITAL W CAD W CAMRYNMina Kelly MD #[address] [address] Phone: tel: fax: Referral ID Status Reason Start Date Expiration Date Visits Re quested Visits Authorized [id number] Closed 08/26/2024 1 1 PRACTIC PHYSICIAN Encounter Details Date Type Department Care Team (Late Contact Info) Description 08/26/2024 Transcribe Orders [facility] Mammography [address] [place] [address] Mina Link MD #[address] [place] [address] Abnormal mammogram (Primary Dx) Social History Tobacco Use Types Packs/Day Years Used Date Smoking Tobacco: Never Smokeless Tobacco: Never Alcohol Use Standard Drinks/Week Comments No 0 (1 standard drink = 0.6 oz pur e alcohol) [facility] Utilities Answer Date Recorded In the past 12 months has th [employer] electric, gas, oil, or water company threatened [...] week 08/30/2023 How often do you attend healthsource [place] or uatsdin services? Patient declined 08/30/2023 Do you belong to any clubs o r organizations such as mosque groups, unions, fraternal or athletic groups, or [...] Total Score - Questions 1-9 0 08/29 [facility] - Occupational [...] place to sleep or slept in a senior care (including now)? No 08/30/2023 Education Answer Date Recorded What is the highest level of school you have completed or the highest degree you have received? Some college, no degree 09/17/2021 Sexually Active Control Partners Comments Yes Surgical Male Comments No Sex and Gender Information Value Date Recorded Sex Assigned at Female 08/22/2024 8:45 PM SANIPRACTIC PHYSICIAN Legal Sex Female 7:51 PM CDT Gender Identity Female 08/22/2024 8:45 PM SANIPRACTIC PHYSICIAN Sexual Orientation Not on file documented as of this encounter Progress Notes * Mina Link MD - 08/26/2024 12:53 PM CST Pended orders signed. Thanks! PRACTIC PHYSICIAN documented in this encounter Plan of Treatment Upcoming Encounters Date Type Department Care Team (Late st Contact Info) Description 08/18/2025 3:00 PM SANIPRACTIC PHYSICIAN Office Visit [facility] Medical [facility] - Cardiology - [place] [address] [place] [address] Aide Sarmiento, ABSORPTION AND ADSORPTION ENGINEER, CODE OFFICIAL 2 [facility] [address] [place] [address] 12/06/2025 9:00 AM CDT Office Visit [facility] Medical Group - Family Medicine - [place] #[address] [facility] [address] Zach Fields, ABSORPTION AND ADSORPTION ENGINEER, CODE OFFICIAL #2 [facility] [address] [place] [address] 02/16/2026 10:00 AM CDT Office Visit [facility] Medical [facility] - Ear, Nose & Throat - [place] [address]2 [place] [phone] Viktor Key MD #2 [facility] [address] [place] [address] 02/17/2026 9:00 AM CDT Office Visit [facility] PHYSICIAN [facility] UROLOGY #[address] [place] [address] Asiya Prieto MD #2 [facility] [address] [place] [address] documented as of this encounter Results * ROBINSON DIAG BILATERAL DIGITAL W CAD W CAMRYN (10/25/2024 9:39 AM CDT) Anatomical Region Laterality Modality breast Bilateral Mammography 10/25/2024 9:27 AM CDT Narrative 10/25/2024 10:38 AM CDT - [facility] DIAG BILATERAL DIGITAL W CAD [...] 10/24/2023, 04/08/2023, 10/22/2022, 09/20/2022, 08/25/2021, and 08/22/2020 [facility]. BREAST TISSUE:There are scattered areas of fibroglandular [...] signed by: Angelita Gale M.D. ab/penrad:10/25/2024 09:39:08 Shirt Closer(s): RT Fe(R)(M), [facility] letter sent: Normal Exam Reading location: [facility] Mammogram BI-RADS: Category 2: Benign Procedure Note Angelita Gale MD - 10/25/2024 - ROBINSON DIAG BILATERAL DIGITAL W CAD [...] 10/24/2023, 04/08/2023, 10/22/2022, 09/20/2022, 08/25/2021, and 08/22/2020 [facility] BREAST TISSUE:There are scattered areas of fibroglandular [...] patient. Electronically signed by: Angelita barbosa/gaye:10/25/2024 09:39:08 Shirt Closer(s): RT Fe(R)(M), [facility] letter sent: Normal Exam Reading location: [facility] Mammogram BI-RADS: Category 2: Benign Mina Link MD IMG MAMMO ORDERABLES Phylicia l Result documented in this encounter Visit Diagnoses Diagnosis Abnormal mammogram- Primary Abnormal mammogram, unspecified Abnormal mammogram Abnormal mammogram, unspecified documented in this encounter Additional Health Concerns Infection Onset Date Last Indicated Resolved Time COVID - 19 09/30/2024 09/30/2024 09/30/2024 1:57 PM SANIPRACTIC PHYSICIAN Assessment Noted Time PHQ-9 Depression Total Score: 0 08/04/19 21 8:00 AM SANIPRACTIC PHYSICIAN documented as of this encounter Care Teams Aviation All Source Intelligence Relationship Specialty Start Date End Date Mina Link MD #2 [facility] [address] [place] [address] PCP - General Family Medicine 10/02/16 Rylie Soler, ABSORPTION AND ADSORPTION ENGINEER, CODE OFFICIAL #2 [facility], [address] [place] [address] Nurse Practitioner Cardiology 08/06/23 02/20/25 Asiya Prieto MD #[address] [facility] [address] [place] [address] Consulting Physician Urology 12/05/23 Viktor Key MD [address] [facility] [address] [place] [address] Consulting Physician Otolaryngology 12/13/24 documented as of this encounter
--- OUTSIDE RECORDS SUMMARY | 2025-07-15 12:34 | XMS_ITS | Encounter Summary ---
Author Organization [facility] Address [address] [place] [address] Phone Care Team Providers Care Senior Software Development Engineer Name Role Phone Mina Link MD Primary Care Provider [phone] Asiya Prieto MD Unavailable [phone] Viktor Key MD Unavailable [phone] Reason for Visit * Reason Comments Medication Refill Encounter Details Date Type Department Care Team (Late st Contact Info) Description 07/15/2025 Refill [facility] - Family [facility] [address] [place] [address] Mina Link MD #[address] [address] Medication Refill Social History Tobacco Use Types Packs/Day Years Used Date Smoking Tobacco: Never Smokeless Tobacco: Never Alcohol Use Standard Drinks/Week Comments No 0 (1 standard drink = 0.6 oz pur e alcohol) [facility] Utilities Answer Date Recorded In the [...] often do you attend chur ch or anglican services? Never 11/28/2024 Do you belong to any clubs o r organizations such as taoism groups, unions, fraternal or athletic groups, or [...] Total Score - Questions 1-9 0 12/2024 [facility] Occup[facility] ional [facility] - Occupational Stress Questionnaire Answer Date Recorded [...] to sleep or slept in a senior living (including now)? No 08/30/2023 Housing Stability Vital Sign Answer Kevon e Recorded In the last 12 months, was t here a time when you were not able to pay the mortgage or rent on time? No 11/28/2024 In the past 12 months, how m any times have you moved where you were living? 0 11/28/2024 At any time in the past 12 m [facility], were you homeless or living in a senior living (including now)? No 11/28/2024 Education Answer Date Recorded What is the highest level of school you have completed or the highest degree you have received? Some college, no degree 09/17/2021 Sexually Active Control Partners Comments Yes Surgical Male Comments No Sex and Gender Information Value Date Recorded Sex Assigned at Female 08/22/2024 8:45 PM CUTLERY GRINDER Legal Sex Female 7:51 PM CDT Gender Identity Female 08/22/2024 8:45 PM CUTLERY GRINDER Sexual Orientation Not on file documented as of this encounter Miscellaneous Notes * Telephone Encounter - Vivi Weinberg RN - 07/15/2025 11:50 AM CUTLERY GRINDER Medication(s) refilled and signed per [facility] Chronic Medication Refill Standing Order for Pediatricand Adult Patients. Requested Prescriptions Pending Prescriptions Disp Refills simvastatin (ZOCOR) 20 MG Tablet [Pharmacy Med Name: Simvastatin 20 MG Oral Tablet] 90 Tablet 0 Sig: Take 1 tablet by mouth nightly Hmg CoA Reductase Inhibitors Protocol Passed - 07/15/2025 11:50 AM Passed - Visit with relevant provider in past 12 months or upcoming 90 days Recent Visits Date Type Provider Dept 06/07/25 Office Visit Zach Fields APRN, [facility] 11/30/24 Office Visit Zach Fields APRN, [facility] 10/07/24 Telemedicine Mina Link MD [facility] 08/02/24 Telemedicine Mina Link MD [facility] Showing recent visits within past 365 days and meeting all other requirements Future Appointments No visits were found meeting these conditions. Showing future appointments within next 90 days and meeting all other requirements Passed - Lipid panel in past 12 months LDL Date Value Ref Range Status 06/07/2025 90 <130 mg/dL Final HDL CHOLESTEROL Date Value Ref Range Status 06/07/2025 56 >40 mg/dL Final CHOLESTEROL Date Value Ref Range Status 06/07/2025 164 <200 mg/dL Final TRIGLYCERIDES Date Value Ref Range Status 06/07/2025 89 <150 mg/dL Final VLDL Date Value Ref Range Status 06/07/2025 18 10 - 50 mg/dL Final CHOL/HDL RATIO Date Value Ref Range Status 06/07/2025 2.9 0.0 - 4.4 Final NON-HDL CHOLESTEROL Date Value Ref Range Status 06/07/2025 108 <130 mg/dL Final Passed - CMP in past 12 months SODIUM Date Value Ref Range Status 06/07/2025 140 136 - 145 mmol/L Final POTASSIUM Date Value Ref Range Status 06/07/2025 4.7 3.5 - 5.1 mmol/L Final CHLORIDE Date Value Ref Range Status 06/07/2025 104 98 - 107 mmol/L Final CO2, VENOUS Date Value Ref Range Status 06/07/2025 27 22 - 30 mmol/L Final ANION GAP Date Value Ref Range Status 06/07/2025 13.7 <18.0 mmol/L Final GLUCOSE Date Value Ref Range Status 06/07/2025 102 (H) 70 - 99 mg/dL Final BUN Date Value Ref Range Status 06/07/2025 18 10 - 20 mg/dL Final CREATININE - POCT Date Value Ref Range Status 10/28/2023 1.0 0.6 - 1.3 mg/dL Final CREATININE, BLOOD Date Value Ref Range Status 06/07/2025 1.03 (H) 0.60 - 1.00 mg/dL Final BUN/CREATININE RATIO Date Value Ref Range Status 06/07/2025 17 12 - 20 ratio Final TOTAL PROTEIN Date Value Ref Range Status 06/07/2025 6.9 6.0 - 8.0 g/dL Final ALBUMIN Date Value Ref Range Status 06/07/2025 4.5 3.5 - 5.0 g/dL Final A/G RATIO Date Value Ref Range Status 06/07/2025 1.9 1.0 - 2.2 Final CALCIUM Date Value Ref Range Status 06/07/2025 10.3 8.7 - 10.5 mg/dL Final T BILI Date Value Ref Range Status 06/07/2025 0.7 0.2 - 1.2 mg/dL Final SGOT (AST) Date Value Ref Range Status 06/07/2025 22 <43 U/L Final SGPT (ALT) Date Value Ref Range Status 06/07/2025 21 <56 U/L Final ALKALINE PHOSPHATASE Date Value Ref Range Status 06/07/2025 60 40 - 150 U/L Final GFR, EST. NONAFRICAN Date Value Ref Range Status 06/07/2025 53 (L) >=60 Final Comment: Creatinine Clearance is the preferred criteria for selecting drug dose adjustments in renally impaired patients. The GFR is provided as additional pertinent clinical information. GFR is reported in mL/min/1.73 sq m. Calculation based on the 2009 Chronic Kidney Disease Epidemiology Collaboration (CKD-EPI). GFR, EST. Date Value Ref Range Status 06/07/2025 >60 >=60 Final Comment: Creatinine Clearance is the preferred criteria for selecting drug dose adjustments in renally impaired patients. The GFR is provided as additional pertinent clinical information. GFR is reported in mL/min/1.73 sq m. Calculation based on the 2009 Chronic Kidney Disease Epidemiology Collaboration (CKD-EPI). GFR, ESTIMATED Date Value Ref Range Status 06/07/2025 57 (L) >=60 Final Comment: Creatinine Clearance is the preferred criteria for selecting drug dose adjustments in renally impaired patients. ??The GFR is provided as additional pertinent clinical information. GFR is reported in mL/min/1.73 sq m. Calculation based on the 2020 Chronic Kidney Disease Epidemiology Collaboration (CKD-EPI) equation refit without adjustment for race. IS THE PATIENT REQUIRED TO BE FASTING? Date Value Ref Range Status 06/07/2025 No Final ERY GRINDER documented in this encounter Plan of Treatment Upcoming Encounters Date Type Department Care Team (Late st Contact Info) Description 08/18/2025 3:00 PM CUTLERY GRINDER [facility] - [place] #2 [facility] [place] [phone] Aide Sarmiento CHESTNUT TANNER, SUPERVISOR CONCRETE BLOCK PLANT 2 [facility] [address] [place] [address] 12/06/2025 9:00 AM CDT Office Visit [facility] Medical [facility] - Family Medicine - [place] #2 [place] [phone] Zach Fields, CHESTNUT TANNER, SUPERVISOR CONCRETE BLOCK PLANT #2 [facility] [address] [place] [address] 02/16/2026 10:00 AM CDT Office Visit [facility] Medical Group - Ear, Nose & Throat - [place] #2 [facility] [address] Viktor Key MD #2 [facility] [address] [place] [address] 02/17/2026 9:00 AM CDT Office Visit [facility] UROLOGY #2 [facility] [place] [phone] Asiya Prieto MD #2 [facility] [address] [place] [address] documented as of this encounter Visit Diagnoses Not on filedocumented in this encounter Additional Health Concerns Assessment Noted Time PHQ-9 Depression Total Score: 0 12/01/19 9:11 AM CDT documented as of this encounter Care Teams Senior Software Development Engineer Relationship Specialty Start Date End Date Mina Link MD #2 [facility] [address] [place] [address] PCP - General Family Medicine 10/02/16 Asiya Prieto MD #2 [facility] [address] [place] [address] Consulting Physician Urology 12/05/23 Viktor Key MD #2 [facility] [address] [place] [address] Consulting Physician Otolaryngology 12/13/24 documented as of this encounter
[2025-07-15 12:38] VITALS: BP 144/65; PULSE 77; RESP 16; TEMP 36.4; O2SAT 97
--- NOTE | 2025-07-15 12:44 | ED_ITS ---
HPI - General Adult General Chief complaint: Extremity Injury, Lower Stated complaint: Fall Injury/Right Hip Time Seen by Provider: 07/15/25 13:12 Source: patient, RN notes reviewed and old records reviewed Mode of arrival: ambulatory Limitations: no limitations History of Present Illness HPI narrative: 75-year-old female presents to the [facility] with lateral right hip pain. Patient states that she fell onto her left side on June 18. Tried calling primary care provider who instructed her to go to [facility] in get an x-ray. Has taken rqie-cuo-flzvrst products Treatments prior to arrival: other ( OTC medication) Related Data Home Medications ?Medication ?Instructions ?Recorded ?Confirmed ?Last Taken ?Type amlodipine 5 mg tablet mg 07/15/25 Unknown History b12 07/15/25 Unknown History fish oil 07/15/25 Unknown History losartan 100 mg tablet mg 07/15/25 Unknown History metoprolol succinate 25 mg mg PO 07/15/25 Unknown His tory tablet,extended release 24 hr phosomax 07/15/25 Unknown History simvastatin 20 mg tablet mg 07/15/25 Unknown History vit d 07/15/25 Unknown History Allergies Allergy/AdvReac Type Severity Reaction Status Date / Time TB skin test Allergy Intermediate Hives Uncoded 07/15/25 12:42 Review of Systems Review of Systems: All systems reviewed & are unremarkable except as noted in HPI and below Constitutional: Constitutional: Reports no additional constitutional complaints ENT: Reports system reviewed and no additional complaints, except as documented Cardiovascular: Cardiovascular: Reports no additional cardiovascular complaints, Denies chest pain and Denies dyspnea Respiratory: Respiratory: Reports no additional respiratory complaints, Denies chest congestion, Denies cough and Denies dyspnea Musculoskeletal: Musculoskeletal: Reports as per HPI, Denies abnormal gait and Reports arthralgias ( right hip) Integumentary/Breasts: Skin/Breast: Reports system reviewed and no additional complaints, except as docu PMFSH Comments At the time of my signature, I reviewed and agree with the nursing past medical, surgical, social, and family history. There is no relevant family history pertinent to the patient complaint. Exam Const: General: cooperative, healthy appearing, comfortable, no acute distress, well developed, alert and well nourished Nutritional Appearance: well nourished Orientation/consciousness: patient oriented x3 Limitations: no limitations HENMT: Head: normal to inspection Eyes: General: appearance normal, both eyes and all related structures Alignment and Position: alignment normal Neck: Neck: normal visual inspection, full ROM, no lymphadenopathy and no meningeal signs Chest: Chest palpation & inspection: normal inspection of the chest Resp: Effort & Inspection: normal respiratory effort and able to speak in complete sentences Auscultation: clear to auscultation bilaterally, no crackles, no rales, no rhonchi and no wheezes Cardio: Rate: regular rate Back/Spine/Pelvis: Back: No back tenderness Skin: General skin exam: normal color and no rashes or lesions noted Neuro: General: patient oriented x3, gait normal, moves all extremities and no meningeal signs Cognition (Neuro): normal cognition Speech: normal speech Gait exam (Neuro): Normal gait present Extrem: General: normal to inspection, full ROM, capillary refill normal and normal gait Right lower extremity: full ROM, normal capillary refill, hip/thigh Details: tenderness and normal ROM; no swelling, no abrasions and no ecchymosis and knee Details: normal to inspection and normal ROM Psych: Appearance: grossly normal and well kempt Mental Status: mental status grossly normal Speech and movement: Normal speech and movement present and Clear speech present Affect: normal affect Attitude: cooperative Course Course Level of Care: Express Care Visit Vital Signs Vital signs: Vital Signs Temperature 97.5 F L 07/15/25 12:38 Pulse Rate 77 07/15/25 12:38 Respiratory Rate 16 07/15/25 12:38 Blood Pressure 144/65 H 07/15/25 12:38 Pulse Oximetry 97 07/15/25 12:38 Oxygen Delivery Room Air 07/15/25 12:38 Temperature 97.5 F L 07/15/25 12:38 Pulse Rate 77 07/15/25 12:38 Respiratory Rate 16 07/15/25 12:38 Blood Pressure 144/65 H 07/15/25 12:38 Pulse Oximetry 97 07/15/25 12:38 Oxygen Delivery Room Air 07/15/25 12:38 reviewed MDM MDM Narrative Medical decision making narrative: Patient sitting in exam room. Patient is nontoxic, vitals stable. Patient had a trip fall and continued right hip pain since the 18 of June. Patient reports falling on her left side. No bruising or swelling. No midline tenderness. X-ray is negative. Patient is appropriate for outpatient treatment with close follow-up Discharge instructions reviewed with patient, as well as provided in writing per nursing staff. The instructions also include specific and strict return/GO TO THE ER as well as f/u information. All questions have been answered, and the patient deny any further questions with discharge and discharge plan. Some parts of this dictation were generated by voice recognition software and may contain typographical and/or grammatical inaccuracies. Differential Diagnosis Differential Diagnosis: Differential diagnostic considerations for lower extremity injury include ankle sprain/strain, acute internal derangement of knee, fracture of femur, fracture of hip, puncture wound of foot, fracture of toe, fracture of ankle, tendon rupture (achilles/patellar/quadriceps). Imaging Data Radiologist's impression: ITS Impressions Hip/Pelvis X-Ray 07/15/25 12:59 Impression: No acute fracture or malalignment. 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 Findings: No acute fracture or malalignment. No significant degenerative changes. Soft tissues unremarkable. Impression: No acute fracture or malalignment. Discharge Plan Discharge Clinical Impression: Hip pain, right Patient Disposition: Home Condition: Stable Instructions: Hip Pain (ED) Additional Instructions: Your Xray did not show a fracture. Ice should be applied to help reduce swelling. It can be used for 20 to 30 minutes, every 2-3 hours while awake. Do not apply ice directly to your skin. You can alternate ibuprofen 600mg and Tylenol 650mg every 4 hours as needed for pain Please schedule a follow-up visit with your personal physician for further evaluation and treatment within 2 weeks especially if symptoms persist. For new or worsening symptoms go directly to the emergency room Patient Language: Amharic Prescriptions: No Action amlodipine 5 mg tablet simvastatin 20 mg tablet metoprolol succinate 25 mg tablet extended release 24 hr PO losartan 100 mg tablet phosomax b12 fish oil vit d Follow-up/Referrals: Nikolay,Mina Lopez MD [Primary Care Provider, Unknown] - 1 Week Clinical Impression: Hip pain, right Time of Disposition: 13:24
== END 2025-07-15 13:30 | disposition home or self-care (01) ==
PROVIDERS: Emergency Provider Nurse Practitioner; PCP Family Medicine
DX: M25.551 Pain in right hip (principal); I10 Essential (primary) hypertension; E78.00 Pure hypercholesterolemia, unspecified; Z90.49 Acquired absence of other specified parts of digestive tract
CPT/HCPCS: 73502; 99203; G0463